=== PATIENT | male | born 1940 | race Hispanic/Latino ===

== ENCOUNTER 2018-03-03 17:00 | Inpatient (IN) | payer OTHER, MEDICARE ==
[2018-03-03] MEDS ORDERED: Acetaminophen 325 MG TAB PO PRN (20:53)
[2018-03-03] MEDS: Aspirin 325 MG TAB PO SCH (21:28)
[2018-03-03] MEDS: hydrALAZINE 25 MG TAB PO SCH (21:28)
[2018-03-04] MEDS ORDERED: SYSTANE GEL DROPS EA EYE PRN (00:33)
[2018-03-04 05:09] LABS: #Basophils 0.1 thou/uL (0.0-0.2); #Eosinphils 0.1 thou/uL (0.0-0.7); #Lymphocytes 1.6 thou/uL (1.20-3.40); #Monocytes 0.6 thou/uL (0.11-0.59); #Neutrophils 4.6 thou/uL (1.40-6.50); %Eosinophils 1.4 % (0.0-10.0); %Lymphocytes 23.2 % (21.0-51.0); %Monocytes 8.9 % (0.0-10.0); %Neutrophils 65.6 % (42.0-75.0); Hemoglobin 10.7 g/dL (14.0-18.0); Mean Corpuscular HGB CONC 33.3 g/dL (32.0-36.0); Mean Corpuscular Hemoglobin 30.7 pg (27.0-31.0); Mean Corpuscular Volume 92.2 fL (78.0-98.0); Mean Platelet Volume 6.4 fL (7.4-10.4); Platelet Count 327 thou/uL (130-400); RBC Distribution Width 13.6 % (11.5-14.5)
[2018-03-04 05:11] LABS: Manual Diff?? NO
[2018-03-04 05:21] LABS: Anion Gap 12 mmol/L (10-20); BUN (Urea Nitrogen) 18 mg/dL (8.4-25.7); Calc. Creatinine Clearance 112 mL/min (70-130); Calcium 8.7 mg/dL (7.8-10.44); Carbon Dioxide 28 mmol/L (23-31); Chloride 101 mmol/L (98-107); Estimated GFR-MDRD Greater than 90; Glucose 105 mg/dL (83-110); Potassium 3.6 mmol/L (3.5-5.1); Sodium 137 mmol/L (136-145)
[2018-03-04] MEDS ORDERED: Mometasone/Formoterol 60 PUFF AER INH SCH (07:00)
[2018-03-04] MEDS: Losartan 25 MG TAB PO SCH (07:44)
[2018-03-04] MEDS: Atorvastatin Calcium 10 MG TAB PO SCH (07:44)
[2018-03-04] MEDS: NIFEdipine XL 30 MG TAB PO SCH (07:44)
[2018-03-04] MEDS: predniSONE 20 MG TAB PO SCH (07:45)
[2018-03-04] MEDS: hydrALAZINE 25 MG TAB PO SCH ×3 (07:46→21:00)
[2018-03-04] MEDS: metFORMIN 500 MG TAB PO SCH ×2 (07:46→16:41)
[2018-03-04] MEDS: Carvedilol 6.25 MG TAB PO SCH ×2 (07:46→16:41)
[2018-03-04] MEDS: glyBURIDE 5 MG TAB PO SCH (07:46)
[2018-03-04] MEDS: Furosemide 20 MG TAB PO SCH (07:46)
[2018-03-04] MEDS ORDERED: Prevnar 13-Val Conj/PF 0.5 ML SYRINGE IM ONE (09:00)
--- NOTE | 2018-03-04 11:23 | HP ---
DATE OF ADMISSION: 03/04/2018. REASON FOR ADMISSION: Transfer from [facility] for planned physical therapy and occupational therapy, status post hospitalization for respiratory failure and pneumonia. HISTORY OF PRESENT ILLNESS: This is a pleasant 77-year-old male with past medical history of hypertension, hyperlipidemia, anemia, and diabetes that presented to [facility] on 02/19/2018 in full respiratory failure. Per ER report, the patient was in his usual state of health until his went to wake him up that morning and found him to be very lethargic with difficulty breathing and difficult to arouse. EMS was called and the patient was intubated en route. When seen in the emergency room, he was found to have a community-acquired pneumonia as the suspected cause of his respiratory failure. The patient was admitted to the Intensive Care Unit and started on broad spectrum IV antibiotics. Patient was eventually able to be extubated on hospital day #4 and tolerated this well. The patient had an elevated BNP level on admission as well as mild troponinemia and therefore cardiac workup was initiated with echocardiogram. Results indicated dilated cardiomyopathy with fraction of 40%-45%. The patient has no prior history of CHF. Or Manager recommended etoh cessation and outpatient stress testing. The patient was stabilized medically and an evaluation of his mobility, he was noted to be severely deconditioned and only able to ambulate a few steps. This was a change from his baseline and therefore decision was made to transfer to [facility] for planned physical therapy and occupational therapy. The patient is seen today with the assistance of a freelance translator, although he is noted to speak Latvian very well. The patient has no complaints. He states he is breathing well, he had no issues overnight. He does feel like he has already gotten stronger from the first 3 days of physical therapy that he received at the [facility]. He confirms that he has had no history of COPD or CHF prior to this admission. Has a remote history of smoking, quit >15 years ago. He follows with a doctor in [place] on an outpatient basis, but does not see any specialists. Is unsure of the name. The patient does not use any assistive devices at home and usually is independent on ADLs at baseline. PAST MEDICAL HISTORY: 1. Diabetes mellitus type 2, non-insulin dependent. 2. 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 Has followed with Dr. Schaffer in the past for this. 3. Hyperlipidemia. 4. Recently diagnosed cardiomyopathy, unknown etiology with ejection fraction of 40%-45%. 5. Remote h/o smoking, quite >15 years ago. 6. Documented history of daily alcohol use. PAST SURGICAL HISTORY: The patient reports he has had a number of surgeries for a broken leg in the past, but otherwise no further surgical history reported. ALLERGIES: No known drug allergies. SOCIAL HISTORY: The patient is . He has a son who is here at bedside and is involved in his care. Also reports a history of drinking alcohol on a social basis. He is presently retired. FAMILY HISTORY: Significant for history of diabetes in multiple family members , otherwise noncontributory. REVIEW OF SYSTEMS: A 10 system review of systems was completed and negative. MEDICATIONS: 1. DuoNeb 3 mL q.4 hours. 2. Aspirin 325 mg once daily. 3. Lipitor 40 mg once daily. 4. Carvedilol 6.25 mg twice daily. 5. Lasix 20 mg once daily. 6. Glyburide 5 mg once daily. 7. Hydralazine 25 mg 3 times daily. 8. Losartan 100 mg once daily. 9. Metformin 1000 mg twice daily. 10. Breo Elipta 100mcg/25 mcg 1 puff twice daily. 11. Nifedipine 30 mg once daily. 12. Systane gel drops p.r.n. 13. Prednisone 20 mg once daily. PHYSICAL EXAMINATION: VITAL SIGNS: Patient's weight is 183 pounds, temperature 98.4, blood pressure has ranged between 157 and 189/72-85, heart rate 64, respirations 20, oxygen is 96% on room air. GENERAL: The patient is alert and oriented x3. He is in no apparent distress. He is calm and cooperative. HEENT: Pupils are equally round and reactive to light. Extraocular movements are intact. Sclerae nonicteric. Oropharynx is moist without erythema. NECK: Supple, without thyromegaly, lymphadenopathy, carotid bruits. HEART: Regular rate and rhythm with a 2/6 systolic murmur appreciated at the left upper sternal border. LUNGS: Positive for faint crackles at bilateral bases, otherwise clear with no wheezing. Good aeration is noted throughout. ABDOMEN: Soft, nontender, nondistended with normoactive bowel sounds. EXTREMITIES: Negative for clubbing, cyanosis or edema. NEUROLOGIC: No focal deficits. Cranial nerves II through XII are grossly intact. SKIN: Warm and dry. LABORATORY DATA: White blood cell count of 7.0, hemoglobin of 10.7, hematocrit 32.2, platelets of 327. Chem panel with sodium of 137, potassium 3.6, chloride 101, carbon dioxide 28, BUN 18, creatinine 0.66, glucose is 105. IMAGING: Last chest x-ray was done a week ago and showed pulmonary vascular congestion with pleural fluid with no significant infiltrate. ASSESSMENT AND PLAN: 1. Physical deconditioning. This is likely secondary to the patient's age as well as recent hospitalization for respiratory failure. The patient will be receiving physical therapy and occupational therapy until he is safe to return home to independent living. 2. Community-acquired pneumonia with recent respiratory failure. The patient has completed his antibiotics per the stage settings painter recommendations. He will continue on neb treatments p.r.n. and will be monitored closely. 3. Dilated cardiomyopathy. The patient's ejection fraction is 40%-45%. Cardiology was consulted at the [facility], who recommended outpatient ischemic workup once he is discharged with Dr. Schaffer. We will continue him on Lasix for now. Etoh cessation encouraged. 4. Anemia, normocytic, unknown etiology. His hemoglobin has dropped from 12.6 on admission to 10.7 today, it does not appear that any further iron studies or anemia panel was performed. We can consider doing this here in the hospital or on an outpatient basis. The patient will also require colon cancer screening if he is not already have this on an outpatient basis. 5. Diabetes type 2, non-insulin dependent. This appears to be controlled at this time. An A1c has been collected and is pending result. His a.m. fasting glucose was 105. We will continue him on a consistent carbohydrate diet. 6. Hypertension, it is currently uncontrolled, but I do not believe he has had his morning medicines yet. We will continue to monitor this throughout the day and make adjustments as needed. DISPOSITION: Insurance has authorized a 1 week stay for physical therapy. At this point, we will continue with this plan and anticipate home health care upon discharge. We will have case management assist with discharge planning as needed. CODE STATUS: FULL CODE. Deep venous thrombosis prophylaxis. The patient was placed on sequential compression devices. MTDD
[2018-03-04 11:56] LABS: Hemoglobin A1c 6.5 % (4.0-6.0)
[2018-03-04] MEDS ORDERED: cloNIDine 0.1 MG TAB PO PRN (15:43)
[2018-03-04] MEDS: Aspirin 325 MG TAB PO SCH (21:00)
[2018-03-05] MEDS: predniSONE 20 MG TAB PO SCH (07:45)
[2018-03-05] MEDS: Atorvastatin Calcium 10 MG TAB PO SCH (07:45)
[2018-03-05] MEDS: Losartan 25 MG TAB PO SCH (07:45)
[2018-03-05] MEDS: Carvedilol 6.25 MG TAB PO SCH ×2 (07:46→17:00)
[2018-03-05] MEDS: NIFEdipine XL 30 MG TAB PO SCH (07:46)
[2018-03-05] MEDS: hydrALAZINE 25 MG TAB PO SCH ×3 (07:46→20:07)
[2018-03-05] MEDS: Furosemide 20 MG TAB PO SCH (07:46)
[2018-03-05] MEDS: metFORMIN 500 MG TAB PO SCH ×2 (07:46→17:00)
[2018-03-05] MEDS: glyBURIDE 5 MG TAB PO SCH (07:46)
[2018-03-05] MEDS: Aspirin 325 MG TAB PO SCH (20:07)
[2018-03-06] MEDS: Atorvastatin Calcium 10 MG TAB PO SCH (08:11)
[2018-03-06] MEDS: NIFEdipine XL 30 MG TAB PO SCH (08:11)
[2018-03-06] MEDS: Furosemide 20 MG TAB PO SCH (08:11)
[2018-03-06] MEDS: predniSONE 20 MG TAB PO SCH (08:12)
[2018-03-06] MEDS: hydrALAZINE 25 MG TAB PO SCH ×3 (08:12→20:09)
[2018-03-06] MEDS: Carvedilol 6.25 MG TAB PO SCH ×2 (08:12→17:07)
[2018-03-06] MEDS: metFORMIN 500 MG TAB PO SCH ×2 (08:12→17:07)
[2018-03-06] MEDS: glyBURIDE 5 MG TAB PO SCH (08:12)
[2018-03-06] MEDS: Losartan 25 MG TAB PO SCH (08:12)
[2018-03-06] MEDS: Aspirin 325 MG TAB PO SCH (20:09)
[2018-03-07] MEDS: Carvedilol 6.25 MG TAB PO SCH ×2 (08:24→17:07)
[2018-03-07] MEDS: glyBURIDE 5 MG TAB PO SCH (08:24)
[2018-03-07] MEDS: metFORMIN 500 MG TAB PO SCH ×2 (08:24→17:07)
[2018-03-07] MEDS: Furosemide 20 MG TAB PO SCH (08:24)
[2018-03-07] MEDS: predniSONE 20 MG TAB PO SCH (08:25)
[2018-03-07] MEDS: hydrALAZINE 25 MG TAB PO SCH ×3 (08:25→20:40)
[2018-03-07] MEDS: Atorvastatin Calcium 10 MG TAB PO SCH (08:25)
[2018-03-07] MEDS: NIFEdipine XL 30 MG TAB PO SCH (08:25)
[2018-03-07] MEDS: Losartan 25 MG TAB PO SCH (08:26)
[2018-03-07] MEDS: Aspirin 325 MG TAB PO SCH (20:40)
[2018-03-08] MEDS: Furosemide 20 MG TAB PO SCH (08:27)
[2018-03-08] MEDS: glyBURIDE 5 MG TAB PO SCH (08:27)
[2018-03-08] MEDS: Carvedilol 6.25 MG TAB PO SCH ×2 (08:27→17:26)
[2018-03-08] MEDS: NIFEdipine XL 30 MG TAB PO SCH (08:28)
[2018-03-08] MEDS: metFORMIN 500 MG TAB PO SCH ×2 (08:28→17:26)
[2018-03-08] MEDS: predniSONE 20 MG TAB PO SCH (08:29)
[2018-03-08] MEDS: Losartan 25 MG TAB PO SCH (08:30)
[2018-03-08] MEDS: hydrALAZINE 25 MG TAB PO SCH ×3 (08:30→20:17)
[2018-03-08] MEDS: Atorvastatin Calcium 10 MG TAB PO SCH (08:30)
[2018-03-08] MEDS: Aspirin 325 MG TAB PO SCH (20:17)
[2018-03-09] MEDS: Carvedilol 6.25 MG TAB PO SCH ×2 (08:22→17:15)
[2018-03-09] MEDS: glyBURIDE 5 MG TAB PO SCH (08:22)
[2018-03-09] MEDS: metFORMIN 500 MG TAB PO SCH ×2 (08:22→17:15)
[2018-03-09] MEDS: Furosemide 20 MG TAB PO SCH (08:22)
[2018-03-09] MEDS: predniSONE 20 MG TAB PO SCH (08:23)
[2018-03-09] MEDS: Atorvastatin Calcium 10 MG TAB PO SCH (08:23)
[2018-03-09] MEDS: hydrALAZINE 25 MG TAB PO SCH ×3 (08:24→21:00)
[2018-03-09] MEDS: NIFEdipine XL 30 MG TAB PO SCH (08:24)
[2018-03-09] MEDS: Losartan 25 MG TAB PO SCH (08:25)
[2018-03-09] MEDS: Aspirin 325 MG TAB PO SCH (21:00)
[2018-03-10 03:19] VITALS: BMI 27.1
[2018-03-10 06:49] VITALS: BP 150/72; TEMP 97
[2018-03-10] MEDS: glyBURIDE 5 MG TAB PO SCH (08:25)
[2018-03-10] MEDS: Losartan 25 MG TAB PO SCH (08:25)
[2018-03-10] MEDS: predniSONE 20 MG TAB PO SCH (08:25)
[2018-03-10] MEDS: Carvedilol 6.25 MG TAB PO SCH (08:25)
[2018-03-10] MEDS: NIFEdipine XL 30 MG TAB PO SCH (08:25)
[2018-03-10] MEDS: hydrALAZINE 25 MG TAB PO SCH (08:25)
[2018-03-10] MEDS: Atorvastatin Calcium 10 MG TAB PO SCH (08:25)
[2018-03-10] MEDS: Furosemide 20 MG TAB PO SCH (08:25)
[2018-03-10] MEDS: metFORMIN 500 MG TAB PO SCH (08:25)
--- NOTE | 2018-03-10 13:50 | DIS ---
PRIMARY CARE PHYSICIAN: Dr. Tri Mcneal at [facility] DATE OF ADMISSION: 03/03/2018 DATE OF DISCHARGE: 03/10/2018 HOSPITAL COURSE: This is a pleasant 77-year-old male that presented to the [facility] bed for planned physical therapy and occupational therapy status post hospitalization at [facility] for respiratory failure and pneumonia. The patient has done a week of physical therapy and occupational therapy and has been ambulatory with a rolling walker without any further issues. He completed his treatment for his pneumonia prior to admission here and has done well from a respiratory standpoint. He has not required any further oxygen since admission. The patient is closer to his baseline and his insurance company has determined he has no further approved days for physical therapy. The only other major issues that the patient experienced during both hospitalizations was a new diagnosis of dilated cardiomyopathy with ejection fraction of 40-45%. The patient has seen Dr. Storm in the past and recommendation was for followup on this on an outpatient basis. He has been started on Lasix 20 mg once daily and has done well without any swelling or volume overload. Additionally, the patient was recommended to limit his alcohol use as this likely was a contributing factor. Dr. Bertrand, who saw him in the hospital, had recommended an ischemic workup for possible underlying coronary artery disease as well. The patient has family members that will continue checking on him at home and decision between him and his family member was for outpatient physical therapy and occupational therapy upon discharge. On day of discharge, the patient is breathing well, has no respiratory complaints, no pain, no swelling and he has been ambulating to and from the gym with a walker without any significant unsteadiness. DISCHARGE DIAGNOSES: 1. Generalized weakness and deconditioning. 2. Community-acquired pneumonia, resolved. 3. Acute respiratory failure secondary to community-acquired pneumonia, resolved. 4. New diagnosis of dilated cardiomyopathy with ejection fraction of 40-45%, stable. 5. Hypertension. 6. Normocytic anemia. 7. Diabetes type 2, well controlled. 8. Hyperlipidemia. DISCHARGE MEDICATIONS: 1. Furosemide 20 mg 1 tablet daily. 2. Atorvastatin 40 mg once daily. 3. Breo Ellipta 100 mcg/25 mcg inhaled once daily. 4. Glyburide 5 mg once daily. 5. Losartan 100 mg once daily. 6. Metformin 1000 mg twice daily. 7. Nifedipine 30 mg extended release once daily. 8. Aspirin 325 mg once daily. 9. Carvedilol 6.25 mg twice daily. 10. Hydralazine 25 mg 3 times daily. DIET: Upon discharge, diabetic diet. ACTIVITIES: The patient will continue his regular activities and use a walker for gait stabilization. FOLLOWUP: The patient will schedule with his primary care physician at [facility] in 2 weeks as well as his primary spinning bath patroller, Dr. Storm within 2 weeks and he will be scheduled for outpatient physical therapy and occupational therapy in the near future. CLAU
== END 2018-03-10 12:50 | disposition home or self-care (01) | DRG 194 ==
LOC: MADMS 17:00
PROVIDERS: ADMIT Family Medicine; ATTEND Family Medicine
DX: J18.9 Pneumonia, unspecified organism (principal); I42.0 Dilated cardiomyopathy; I10 Essential (primary) hypertension; E78.5 Hyperlipidemia, unspecified; D64.9 Anemia, unspecified; E11.9 Type 2 diabetes mellitus without complications; Z87.891 Personal history of nicotine dependence; Z87.01 Personal history of pneumonia (recurrent)
CPT/HCPCS: 36415; 80048; 83036; 85025; G8978-GP-CK; G8979-GP-CI; G8987-GO-CK; G8988-GO-CH; J7506; J7620